=== PATIENT | female | born 1985 | race Caucasian/White ===

== ENCOUNTER 2019-02-24 19:42 | Emergency (ER) | payer MEDICAID ==
[2019-02-24] MEDS ORDERED: predniSONE 20 MG TABLET PO STA (20:14)
[2019-02-24] MEDS ORDERED: CEPHALEXIN 250 MG Prepack 8 CAP BOTTLE PO STA (20:14)
--- NOTE | 2019-02-24 20:17 | ED Physician Documentation ---
History of Present Illness - Stated complaint Stated Complaint: INSECT BITE - Chief complaint Chief Complaint: General - History obtained from History obtained from: Patient - History of Present Illness Timing: Other (About a day and a half of an increasingly painful and itchy red area to the medial distal right thigh. 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 HEENT: None Psych: Depression Musculoskeletal: None Derm: None - Past Surgical History General: Appendectomy /FIBERGLASS FABRICATOR: section HEENT: Tonsil/Adenoidectomy - Present Medications Home Medications: Ambulatory Orders Medication Instructions Recorded Confirmed Cephalexin [Keflex] 500 mg PO Q6H #28 capsule 02/24/19 predniSONE [Deltasone] 60 mg PO DAILY 5 Days tablet 02/24/19 - Allergies Allergies/Adverse Reactions: Allergies Allergy/AdvReac Type Severity Reaction Status Date / Time nitrofurantoin Allergy Cramps Verified 02/24/19 20:03 [From Macrobid] ondansetron HCl * Allergy Unknown Verified 02/24/19 20:03 [From Zofran (as hydrochloride)] Sulfa (Sulfonamide Allergy Rash Verified 02/24/19 20:03 Antibiotics) opiates Allergy Rash Uncoded 02/24/19 20:03 - Social History Does the pt smoke?: No Smoking Status: Never smoker Does the pt drink ETOH?: No Does the pt have substance abuse?: No - Immunizations Immunizations are current?: Yes - POLST Patient has POLST: No PD ED PE NORMAL - Vitals Vital signs reviewed: Yes - General General: Alert and oriented X 3, No acute distress - Derm Derm: Normal color, Warm and dry - Extremities Extremities: Other (Just above the anteromedial right knee there is a palm sized area of slightly raised redness without beefy-red cellulitis, more consistent with a bug bites then cellulitis but could be either. No fluctuance or abscess.) Results - Vitals Vitals: Vital Signs - 24 hr 02/24/19 20:00 Temperature 36.6 C Heart Rate 87 Respiratory 19 Rate Blood Pressure 125/79 O2 Saturation 98 Oxygen O2 Source Room air Departure - Departure Disposition: Home, Self Care Clinical Impression: Bug bite with infection Qualifiers: Encounter type: initial encounter Qualified Code(s): W57.XXXA - Bitten or stung by nonvenomous insect and other nonvenomous arthropods, initial encounter Condition: Good Record reviewed to determine appropriate education?: Yes Instructions: ED Sting Bite Insect Infec Prescriptions: Cephalexin [Keflex] 500 mg PO Q6H #28 capsule predniSONE [Deltasone] 60 mg PO DAILY 5 Days tablet Comments: Return for new worsening symptoms, fever, or if not better in 2 to 3 days. Or you can call me any time, my phone number [phone].
[2019-02-24 20:37] VITALS: BP 121/71
== END 2019-02-24 20:36 | disposition home or self-care (01) ==
LOC: ED 19:42
DX: S70.361A Insect bite (nonvenomous), right thigh, initial encounter (principal); L08.9 Local infection of the skin and subcutaneous tissue, unspecified; W57.XXXA Bitten or stung by nonvenomous insect and other nonvenomous arthropods, initial encounter
CPT/HCPCS: 99282; 99283; J7512

== ENCOUNTER 2019-08-20 13:41 | Emergency (ER) | payer MEDICAID ==
[2019-08-20 14:23] LABS: RAPID STREP SCREEN Negative (Negative)
--- NOTE | 2019-08-20 15:19 | ED Physician Documentation ---
PD HPI HEENT - Stated complaint Stated Complaint: SORE THROAT - Chief complaint Chief Complaint: Heent - History obtained from History obtained from: Patient - History of Present Illness Timing - onset: Other (To 3 months of sore throat, all day every day but much worse over the last 3 days. She saw her doctor who thought was probably postnasal drip and recommended an bavi-she-wrdfhaf antihistamine and she is been taking Zyrtec religiously without improvement. She also feels like her soft palate is irritated. There is some runny nose with it but no cough or fevers. 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: section HEENT: Tonsil/Adenoidectomy - Present Medications Home Medications: Ambulatory Orders Medication Instructions Recorded Confirmed Cephalexin [Keflex] 500 mg PO Q6H #28 capsule 02/24/19 predniSONE [Deltasone] 60 mg PO DAILY 5 Days tablet 02/24/19 Mometasone Furoate [Nasonex] 1 spray NS BID #1 spray.pump 08/20/19 Penicillin V Potassium 500 mg PO Q6HR #40 tablet 08/20/19 - Allergies Allergies/Adverse Reactions: Allergies Allergy/AdvReac Type Severity Reaction Status Date / Time nitrofurantoin Allergy Cramps Verified 08/20/19 13:49 [From Macrobid] ondansetron HCl * Allergy Unknown Verified 08/20/19 13:49 [From Zofran (as hydrochloride)] Sulfa (Sulfonamide Allergy Rash Verified 08/20/19 13:49 Antibiotics) opiates Allergy Rash Uncoded 08/20/19 13:49 - Social History Does the pt smoke?: No Smoking Status: Never smoker Does the pt drink ETOH?: No Does the pt have substance abuse?: No - Immunizations Immunizations are current?: Yes - POLST Patient has POLST: No PD ED PE NORMAL - Vitals Vital signs reviewed: Yes - General General: Alert and oriented X 3, No acute distress - HEENT HEENT: Ears normal - Neck Neck: Supple, no meningeal sign, No bony TTP, Other (Tonsils are surgically absent, the tonsillar pillars and soft palate are mildly red. There is co bblestoning of the retropharynx without swelling there.) - Neuro Neuro: Alert and oriented X 3, Normal speech - Psych Psych: Normal mood, Normal affect Results - Vitals Vitals: Vital Signs - 24 hr 08/20/19 13:47 Temperature 36.3 C L Heart Rate 88 Respiratory 16 Rate Blood Pressure 147/95 H O2 Saturation 97 Oxygen O2 Source Room air - Labs Labs: Laboratory Tests 08/20/19 13:50 Group A Strep Rapid Negative PD MEDICAL DECISION MAKING - ED course ED course: Given the time course it is not unreasonable to trial some antibiotics, antihistamines were ineffective and we will trial nasal steroid as well. Departure - Departure Disposition: 01 Home, Self Care Clinical Impression: Pharyngitis Qualifiers: Pharyngitis/tonsillitis etiology: unspecified etiology Qualified Code(s): J02.9 - Acute pharyngitis, unspecified Condition: Good Record reviewed to determine appropriate education?: Yes Instructions: ED Strep Pharyngitis Poss Prescriptions: Penicillin V Potassium 500 mg PO Q6HR #40 tablet Mometasone Furoate [Nasonex] 1 spray NS BID #1 spray.pump Comments: Call me or text if not better in 1 week,
[2019-08-20 15:28] VITALS: BP 140/90
== END 2019-08-20 15:27 | disposition home or self-care (01) ==
LOC: ED 13:41
DX: J02.9 Acute pharyngitis, unspecified (principal)
CPT/HCPCS: 87070; 87430; 99283; 99284

== ENCOUNTER 2019-10-17 19:34 | Emergency (ER) | payer MEDICAID ==
--- NOTE | 2019-10-17 19:49 | ED Physician Documentation ---
History of Present Illness - Stated complaint Stated Complaint: DIFFICULTY BREATHING, LETHARGIC - Chief complaint Chief Complaint: Resp - History obtained from History obtained from: Patient (Patient is a 34-year-old female who is otherwise healthy reports that she fell like she had palpitations tonight she reports that she has a history of palpitations. She denies any chest pain but does report that she feels some associated shortness of breath denies any history of pulmonary embolism or DVT or MO or stroke denies any family history of sudden at a young age and mother, father, brother sister. Denies any personal history of hypercoagulability. Denies any history of PE or DVT. Denies any recent surgeries or long travels or periods of stasis or exogenous estrogen use denies any lower extremity swelling or isolated calf pain.Denies chest pain.Patient reports that she was sick off and on for the last week with cough congestion subjective fevers chills sore throat and she continues to have this. She did take 1 dose of Tylenol yesterday without resolution of her symptoms.He denies headache, neck pain, rashes.She reports she is up-to-date on all her immunizations.) Review of Systems Constitutional: reports: Chills, Myalgias Eyes: reports: Reviewed and negative Ears: reports: Reviewed and negative Nose: reports: Reviewed and negative Throat: reports: Sore throat Cardiac: reports: Palpitations Respiratory: reports: Dyspnea, Cough GI: reports: Reviewed and negative : reports: Reviewed and negative Skin: reports: Reviewed and negative Musculoskeletal: reports: Reviewed and negative Neurologic: reports: Reviewed and negative Psychiatric: reports: Reviewed and negative Endocrine: reports: Reviewed and negative Immunocompromised: reports: Reviewed and negative PD PAST MEDICAL HISTORY - Past Medical History Cardiovascular: Other Respiratory: None Endocrine/Autoimmune: None GI: None 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 HEENT: None Psych: Depression Musculoskeletal: None Derm: None - Past Surgical History General: Appendectomy /CAR PARKER: section HEENT: Tonsil/Adenoidectomy - Allergies Allergies/Adverse Reactions: Allergies Allergy/AdvReac Type Severity Reaction Status Date / Time nitrofurantoin Allergy Cramps Verified 10/17/19 19:37 [From Macrobid] ondansetron HCl * Allergy Unknown Verified 10/17/19 19:37 [From Zofran (as hydrochloride)] Sulfa (Sulfonamide Allergy Rash Verified 10/17/19 19:37 Antibiotics) opiates Allergy Rash Uncoded 10/17/19 19:37 - Social History Does the pt smoke?: No Smoking Status: Never smoker Does the pt drink ETOH?: No Does the pt have substance abuse?: No - Immunizations Immunizations are current?: Yes - POLST Patient has POLST: No PD ED PE NORMAL - Vitals Vital signs reviewed: Yes - General General: Alert and oriented X 3, No acute distress, Well developed/nourished - HEENT HEENT: Atraumatic, PERRL, Pharynx benign, Dentition benign - Neck Neck: Supple, no meningeal sign, No bony TTP, No adenopathy, Thyroid normal, No JVD, No bruit - Cardiac Cardiac: RRR, No murmur, No gallop, No rub, Strong equal pulses - Respiratory Respiratory: No respiratory distress, Clear bilaterally - Abdomen Abdomen: Normal bowel sounds, Soft, Non tender, Non distended, No organomegaly - Female Female : Pt declined - Rectal Rectal: Pt declined - Back Back: No CVA TTP, No spinal TTP - Derm Derm: Normal color, Warm and dry, No rash - Extremities Extremities: No deformity, No tenderness to palpate, Normal ROM s pain, No edema, No calf tenderness / cord - Neuro Neuro: Alert and oriented X 3, financial aid officer 2-12 intact, No motor deficit, No sensory deficit, Normal speech - Psych Psych: Normal mood, Normal affect Results - Vitals Vitals: Vital Signs - 24 hr 10/17/19 10/17/19 10/17/19 19:37 20:26 21:14 Temperature 37.1 C 37.0 C Heart Rate 71 59 L 64 Respiratory 14 18 18 Rate Blood Pressure 117/83 H 117/62 107/68 O2 Saturation 100 100 98 Oxygen O2 Source Room air - EKG (time done) 20:15 Rate: Other (no stemi) PD MEDICAL DECISION MAKING - ED course Complexity details: re-evaluated patient (21:33 Patient is well-appearing, nontoxic, nonseptic appearing, stable vital signs clear breath sounds on exam will discharge with close follow-up.), considered differential (Differential diagnosis includes: acs, pe, Arrhythmia, Bronchitis, pneumonia, Pericarditis, myocarditis, Pneumothorax. Given the patient's history and physical exam her heart score is 0 her PERC 0.She most likely has some sort of viral syndrome EKG shows no signs of Otero Parkinson White or ischemia or infarction. No signs of ACS or PE.) Departure - Departure Disposition: 01 Home, Self Care Clinical Impression: Arrhythmia Qualifiers: Arrhythmia type: unspecified cardiac arrhythmia Qualified Code(s): I49.9 - Cardiac arrhythmia, unspecified Condition: Stable Instructions: ED Palpitations Follow-Up: your, doctor [Other] - Tomorrow
--- NOTE | 2019-10-17 21:08 | XRAY Report ---
Reason: sob Procedure Date: 10/17/2019 Accession Number: [id number] / [id number] Procedure: XR - Chest 2 View X-Ray CPT Code: 04647 Final Report FULL RESULT: EXAM: CHEST RADIOGRAPHY EXAM DATE: 10/17/2019 08:19 PM. CLINICAL HISTORY: Shortness of breath. COMPARISON: CHEST 2 VIEW PA/LAT 03/19/2015 12:13 PM. TECHNIQUE: 2 views. FINDINGS: Cardiac leads overlie the chest. Heart size is normal. No consolidation, pleural effusion, or pneumothorax. IMPRESSION: No acute cardiopulmonary findings. RADIA
[2019-10-17 21:39] VITALS: BP 108/70
== END 2019-10-17 21:38 | disposition home or self-care (01) ==
LOC: ED 19:34
DX: I49.9 Cardiac arrhythmia, unspecified (principal)
CPT/HCPCS: 71046; 93005; 99283; 99284

== ENCOUNTER 2021-03-15 22:08 | Emergency (ER) | payer MEDICAID, OTHER ==
[2021-03-15 22:16] VITALS: BP 141/97
[2021-03-15] MEDS ORDERED: TETANUS/DIPHTHERIA/PERTUSSIS 0.5 ML SYRINGE IM ONE (22:27)
[2021-03-15] MEDS ORDERED: BUFFERED LIDOCAINE 10 ML SYRINGE SUBQ STA (22:28)
--- NOTE | 2021-03-15 22:35 | ED Physician Documentation ---
PD HPI UPPER EXT INJURY - Stated complaint Stated Complaint: L FINGER LAC - Chief complaint Chief Complaint: Laceration - History obtained from History obtained from: Patient, Family - History of Present Illness Location: Left (Right-handed woman who is up-to-date on tetanus cut her left ring finger while washing dishes and a dish broke at home just prior to arrival.) Review of Systems Constitutional: reports: Reviewed and negative Eyes: reports: Reviewed and negative Ears: reports: Reviewed and negative Nose: reports: Reviewed and negative Throat: reports: Reviewed and negative PD PAST MEDICAL HISTORY - Past Medical History Cardiovascular: Other Respiratory: None Neuro: Headaches Endocrine/Autoimmune: None GI: None 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 HEENT: None Psych: Depression Musculoskeletal: None Derm: None - Past Surgical History General: Appendectomy /RESPIRATORY TECHNICIAN: section HEENT: Tonsil/Adenoidectomy - Allergies Allergies/Adverse Reactions: Allergies Allergy/AdvReac Type Severity Reaction Status Date / Time nitrofurantoin Allergy Cramps Verified 10/17/19 19:37 [From Macrobid] ondansetron HCl * Allergy Unknown Verified 10/17/19 19:37 [From Zofran (as hydrochloride)] Sulfa (Sulfonamide Allergy Rash Verified 10/17/19 19:37 Antibiotics) opiates Allergy Rash Uncoded 10/17/19 19:37 - Social History Does the pt smoke?: No Smoking Status: Never smoker Does the pt drink ETOH?: No Does the pt have substance abuse?: No - Immunizations Immunizations are current?: Yes - POLST Patient has POLST: No PD ED PE NORMAL - Vitals Vital signs reviewed: Yes - General General: Alert and oriented X 3, No acute distress - Extremities Extremities: Other (There is a 1 cm laceration on the left fourth finger, radial side, just distal to the DIP. She is insensate on the radial side distal to this without sensory deficits on the ulnar side nor evidence of tendon injury.) - Neuro Neuro: Alert and oriented X 3, Normal speech - Psych Psych: Normal mood, Normal affect Results - Vitals Vitals: Vital Signs - 24 hr 03/15/21 22:14 Temperature 36.3 C L Heart Rate 103 H Respiratory 18 Rate Blood Pressure 141/97 H O2 Saturation 95 Oxygen O2 Source Room air Procedures - Laceration (location) L 4th finger Length in cm: 1.5 Wound type: Linear, Into subcut fat Anesthesia: Lidocaine 1%, With bicarb Wound preparation: Hibiclens, Irrigated copiously NS Skin layer closure: Nylon, Interrupted, Size #-0 - enter number (5-0), Sutures - enter # (7) Other: Tetanus UTD Departure - Departure Disposition: 01 Home, Self Care Clinical Impression: Digital nerve injury Finger laceration Qualifiers: Encounter type: initial encounter Finger: ring finger Damage to nail status: without damage Foreign body presence: without foreign body Laterality: left Qualified Code(s): S61.215A - Laceration without foreign body of left ring finger without damage to nail, initial encounter Condition: Good Record reviewed to determine appropriate education?: Yes Instructions: ED Laceration Hand Comments: As discussed, it is likely that the sensation on that side of the finger will eventually come back, that said it is possible that you may be numb there in the long-term. It is too far out on the finger to consider hand surgery consultation for definitive repair though. Come back for any signs of infection which would include: Redness, swelling, drainage, increased pain, or fevers. You can wash it soap and water. Keep it covered and moist with bacitracin ointment which is available over the counter; avoid neosporin. Follow-up with your physician in 10-14 days for suture removal.
== END 2021-03-15 23:16 | disposition home or self-care (01) ==
LOC: ED 22:08
DX: S61.215A Laceration without foreign body of left ring finger without damage to nail, initial encounter (principal); W25.XXXA Contact with sharp glass, initial encounter; Y93.G1 Activity, food preparation and clean up; Y92.009 Unspecified place in unspecified non-institutional (private) residence as the place of occurrence of the external cause
CPT/HCPCS: 12011; 99282; 99283

== ENCOUNTER 2021-05-15 13:26 | Outpatient (CLI) | payer OTHER | END 2021-05-15 13:27 | disposition home or self-care (01) | LOC: COV 13:26 | PROVIDERS: ATTEND Family Medicine | DX: R50.9 Fever, unspecified (principal); R53.83 Other fatigue; Z20.822 Contact with and (suspected) exposure to COVID-19 ==

== ENCOUNTER 2022-07-01 21:15 | Emergency (ER) | payer OTHER ==
--- NOTE | 2022-07-01 22:40 | ED Physician Documentation ---
History of Present Illness - Stated complaint Stated Complaint: RT SIDE PX - Chief complaint Chief Complaint: Back Pain - Additonal information Additional information: Patient 36-year-old female presenting with right-sided flank and back pain. Reports back pain ongoing since Friday of last week. Now associated with severe back spasms.Denies trauma to the back, fever, saddle paresthesias, loss of bowel or bladder control. 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 HEENT: None Psych: Depression Musculoskeletal: None Derm: None Other Past Medical History: burke danlos syndome - Past Surgical History Past Surgical History: Yes General: Appendectomy /MAPPING EDITOR: section HEENT: Tonsil/Adenoidectomy - Present Medications Home Medications: Ambulatory Orders Medication Instructions Recorded Confirmed Acetaminophen [8 Hour Pain Relief] 650 mg PO Q6HR #30 tab 07/02/22 Ibuprofen [Motrin] 1 tablet PO Q8H PRN #30 tablet 07/02/22 Lidocaine Patch 5% [Lidoderm Patch] 1 each TOP DAILY #30 patch 07/02/22 methocarbamoL [Robaxin] 500 mg PO Q6H PRN #20 tablet 07/02/22 - Allergies Allergies/Adverse Reactions: Allergies Allergy/AdvReac Type Severity Reaction Status Date / Time nitrofurantoin Allergy Cramps Verified 07/01/22 21:30 [From Macrobid] ondansetron HCl * Allergy Unknown Verified 07/01/22 21:30 [From Zofran (as hydrochloride)] Sulfa (Sulfonamide Allergy Rash Verified 07/01/22 21:30 Antibiotics) opiates Allergy Rash Uncoded 07/01/22 21:30 - Social History Does the pt smoke?: No Smoking Status: Never smoker Does the pt drink ETOH?: No Does the pt have substance abuse?: No - Immunizations Immunizations are current?: Yes - POLST Patient has POLST: No PD ED PE NORMAL - General General: Alert and oriented X 3 - HEENT HEENT: Atraumatic - Neck Neck: Supple, no meningeal sign - Cardiac Cardiac: RRR - Respiratory Respiratory: No respiratory distress - Abdomen Abdomen: Normal bowel sounds - Female Female : Deferred - Rectal Rectal: Deferred - Back Back: Other (Right-sided paraspinal muscle tenderness to palpation.) Results - Vitals Vitals: Vital Signs - 24 hr 07/01/22 07/02/22 21:25 00:35 Temperature 37.3 C Heart Rate 99 73 Respiratory 18 16 Rate Blood Pressure 122/80 117/73 O2 Saturation 100 97 Oxygen O2 Source Room air - Labs Labs: Laboratory Tests 07/01/22 07/01/22 07/01/22 23:00 23:00 23:00 WBC 10.4 RBC 4.52 Hgb 13.7 Hct 41.6 MCV 92.0 MCH 30.3 MCHC 32.9 RDW 12.5 Plt Count 333 MPV 9.7 Neut # (Auto) 6.3 Lymph # (Auto) 3.3 Grimes # (Auto) 0.7 Eos # (Auto) 0.1 Baso # (Auto) 0.1 Absolute Nucleated RBC 0.00 Nucleated RBC % 0.0 Sodium 136 Potassium 3.6 Chloride 100 L Carbon Dioxide 27 Anion Gap 9.0 BUN 12 Creatinine 0.7 Estimated GFR (MDRD) 94 Glucose 110 H Calcium 9.3 Total Bilirubin 0.5 AST 17 ALT 25 Alkaline Phosphatase 31 L Total Protein 6.9 Albumin 3.7 Globulin 3.2 Albumin/Globulin Ratio 1.2 Lipase 41 Serum HCG, Qual NEGATIVE PD MEDICAL DECISION MAKING - ED course Complexity details: reviewed results, d/w patient ED course: Patient 36-year-old female presenting with right-sided flank pain with associated muscle spasm. No history of trauma. No red flags would be concerning for infection or spinal cord compression. Right-sided paraspinal muscle tenderness to palpation ap preciated on exam without point tenderness to the spine itself. 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 I did obtain basic labs which were within normal limits or nonactionable. CT of the abdomen and pelvis was also benign. She reported that she has adverse reaction to opiate narcotics. She was given multiple medications for symptomatic management including Toradol, acetaminophen, Valium, gabapentin. At this time will discharge with medication for symptomatic management. Encouraged adequate fluid intake, light activity as tolerated and careful follow-up with primary care. Departure - Departure Prescriptions: Acetaminophen [8 Hour Pain Relief] 650 mg PO Q6HR #30 tab Lidocaine Patch 5% [Lidoderm Patch] 1 each TOP DAILY #30 patch Ibuprofen [Motrin] 1 tablet PO Q8H PRN #30 tablet PRN Reason: PAIN &/OR FEVER methocarbamoL [Robaxin] 500 mg PO Q6H PRN #20 tablet PRN Reason: muscle spasm Comments: Thank you for allowing us to care for you today at [facility]. Today in the emergency department you were evaluated for any possible life- threatening medical emergency. All the testing performed in the emergency department including your blood work and the CT scan of your abdomen and pelvis were all very reassuring. I have sent some medications to help with your symptoms to your preferred pharmacy, [facility] in [place].. 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 I recommend drinking plenty of fluids and light activity as tolerated is complete inactivity can make back pain such as which you are experiencing worse. Please make a follow-up appoint with your primary care doctor soon as possible. If it anytime you develop any new or worsening symptoms please not hesitate to return.
[2022-07-01] MEDS ORDERED: diazePAM 5 MG TABLET PO STA (22:49)
[2022-07-01] MEDS ORDERED: KETOROLAC 30 MG/ML VIAL IVP STA (22:49)
[2022-07-01] MEDS ORDERED: SODIUM CHLORIDE 0.9% 1,000 ML IV STA (22:49)
[2022-07-01] MEDS ORDERED: iohexoL-300 100 ML VIAL ONE (23:06)
[2022-07-01 23:12] LABS: BASOPHILS # (AUTO) 0.1 10^3/uL (0.0-0.1); BASOPHILS % (AUTO) 0.5 %; EOSINOPHILS # (AUTO) 0.1 10^3/uL (0.0-0.7); EOSINOPHILS % (AUTO) 1.1 %; HCT - HEMATOCRIT 41.6 % (37.0-47.0); HGB - HEMOGLOBIN 13.7 g/dL (12.0-16.0); LYMPHOCYTES # (AUTO) 3.3 10^3/uL (1.5-3.5); LYMPHOCYTES % (AUTO) 31.2 %; MEAN CORPUSCULAR HEMOGLOBIN 30.3 pg (27.0-31.0); MEAN CORPUSCULAR HGB CONC 32.9 g/dL (32.0-36.0); MEAN PLATELET VOLUME 9.7 fL (7.9-10.8); MONOCYTES # (AUTO) 0.7 10^3/uL (0.0-1.0); MONOCYTES % (AUTO) 6.9 %; NEUTROPHILS # (AUTO) 6.3 10^3/uL (1.5-6.6); NEUTROPHILS % (AUTO) 59.9 %; PLT - PLATELET COUNT 333 10^3/uL (130-450); RED BLOOD COUNT 4.52 10^6/uL (4.20-5.40); RED CELL DISTRIBUTION WIDTH 12.5 % (12.0-15.0); WHITE BLOOD COUNT 10.4 x10^3/uL (4.8-10.8)
[2022-07-01 23:21] LABS: ALBUMIN 3.7 g/dL (3.2-5.5); ALBUMIN/GLOBULIN RATIO 1.2 (1.0-2.2); BILIRUBIN,TOTAL 0.5 mg/dL (0.2-1.0); CALCIUM 9.3 mg/dL (8.5-10.3); CREATININE 0.7 mg/dL (0.4-1.0); POTASSIUM 3.6 mmol/L (3.5-5.0); TOTAL PROTEIN 6.9 g/dL (6.7-8.2)
[2022-07-01] MEDS ORDERED: ACETAMINOPHEN 325 MG TABLET PO STA (23:56)
[2022-07-01] MEDS ORDERED: LIDOCAINE PATCH 5% TOP STA (23:56)
[2022-07-01] MEDS ORDERED: GABAPENTIN 100 MG CAPSULE PO STA (23:56)
[2022-07-02 00:21] LABS: HCG,QUALITATIVE BLOOD NEGATIVE
[2022-07-02 00:36] VITALS: BP 117/73
--- NOTE | 2022-07-02 00:45 | CT Report ---
PROCEDURE: ABDOMEN/PELVIS W INDICATIONS: Flank pain CONTRAST: Omni 300 100ml TECHNIQUE: After the administration of intravenous contrast, 5 mm thick sections acquired from the diaphragms to the symphysis. 5 mm thick coronal and sagittal reformats were acquired. For radiation dose reducti on, the following was used: automated exposure control, adjustment of mA and/or kV according to valente ent size. COMPARISON: None. FINDINGS: Image quality: Excellent. Lung bases: Unremarkable. Heart: Heart is normal in size. ABDOMEN: Liver: No mass lesion. Gallbladder: Within normal limits without calcified gallstones. Biliary ducts: No biliary ductal dilatation. Pancreas: Unremarkable. Spleen: Normal in size. Adrenal Glands: No adrenal nodules. Kidneys and Ureters: No hydronephrosis. Stomach and Bowel: Stomach, small bowel loops, and colon are normal in caliber and wall thickness. T he appendix is not discretely well visualized but there are no pericecal inflammatory changes to sugg est acute appendicitis. There are a few colonic diverticula without acute diverticulitis. Peritoneum: No abnormal intraperitoneal fluid. No free air. Ventral Wall: No hernia. Abdominal Nodes: No retroperitoneal or mesenteric adenopathy by size criteria. Vessels: Aorta and inferior vena cava are normal in size. PELVIS: Pelvic Organs: Unremarkable. Bladder: Unremarkable. Pelvic Nodes: No enlarged lymph nodes. Miscellaneous: No inguinal hernias are seen. Bones: Visualized osseous structures demonstrate no suspicious focal lesions. IMPRESSION: 1. No definite acute intra-abdominal abnormality. Specifically, no evidence of obstructive uropathy. 2. No pericecal inflammatory changes to suggest appendicitis. Reviewed by: Wilfred Bravo MD on 07/02/2022 12:43 AM [facility] Approved by: Wilfred Bravo MD on 07/02/2022 12:43 AM PST Station ID: [id number]
[2022-07-02] MEDS ORDERED: iohexoL-300 100 ML VIAL IVP ONE (02:17)
== END 2022-07-02 01:28 | disposition home or self-care (01) ==
LOC: ED 21:15
DX: R10.9 Unspecified abdominal pain (principal); M62.838 Other muscle spasm
CPT/HCPCS: 36415; 74177; 80053; 83690; 84703; 85025; 96361; 96374; 99282; 99284; A9270; Q9967